=== PATIENT | male | born 1970 | race Caucasian/White ===

== ENCOUNTER 2017-01-25 16:08 | Emergency (ER) | payer OTHER ==
[~2017-01-25] VITALS: Ht 177.8 cm; Wt 83.0 kg
[2017-01-25 16:25] VITALS: BP 122/73
--- NOTE | 2017-01-25 16:47 | PHYS DOC ---
Past Medical History Past Medical History: Arthritis, Other Additional Past Medical Histor: DDD, chronic back problems Past Surgical History: Other Additional Past Surgical Histo: vasectomy and reversal Alcohol Use: Heavy Drug Use: None Adult General Chief Complaint Chief Complaint: ANKLE PROBLEM HPI HPI Patient is a 46 year old male who presents with mild left lateral ankle pain that began today after he rolled his left ankle. Review of Systems Review of Systems Constitutional: Denies fever or chills [] Eyes: Denies change in visual acuity, redness, or eye pain [] Musculoskeletal: mild left lateral ankle pain Integument: Denies rash or skin lesions [] Neurologic: Denies headache, focal weakness or sensory changes [] Endocrine: Denies polyuria or polydipsia [] Allergies Allergies Allergies Coded Allergies Type Severity Reaction Last Updated Verified No Known Drug Allergies 01/25/17 No Physical Exam Physical Exam Constitutional: Well developed, well nourished, no acute distress, non-toxic appearance. [] Skin: Warm, dry, no erythema, no rash. [] Back: No tenderness, no CVA tenderness. [] Extremities: Left ankle with small amount of soft tissue swelling on the lateral aspect. Tenderness on palpation of the left lateral ankle. Full range of motion to the left ankle and toes. +2 left pedal pulse. Cap refill less than 2 seconds the left lower extremity. Sensation intact to the left lower extremity. Neurologic: Alert and oriented X 3, normal motor function, normal sensory function, no focal deficits noted. [] Psychologic: Affect normal, judgement normal, mood normal. [] Current Patient Data Vital Signs Vital Signs Date Time Temp Pulse Resp B/P Pulse Ox O2 Delivery O2 Flow Rate FiO2 01/25/17 16:25 97.3 60 16 96 Room Air 97.3 EKG EKG [] Radiology/Procedures Radiology/Procedures [] Course & Med Decision Making Course & Med Decision Making Pertinent Labs and Imaging studies reviewed. (See chart for details) Patient is in the ED with left ankle pain after rolling his ankle today. Left ankle x-rays interpreted by Dr. Gutiérrez no noted for tibial plateau fracture. Patient will be placed in a stirrup splint applied by technician automatic. F/u with Ortho on Saturday. Dragon Disclaimer Dragon Disclaimer This electronic medical record was generated, in whole or in part, using a voice recognition dictation system. Departure Departure Impression: Primary Impression: Tibial plateau fracture, right Disposition: HOME, SELF-CARE Condition: STABLE Referrals: CHERELLE HARDING NP (PCP) NINO BULLARD MD Follow-up with your own doctor or the provided orthopedic doctor by calling his office on Saturday Patient Instructions: Ankle Fracture Additional Instructions: You have right tibial plateau fracture. Please ice and elevate the extremity. Follow-up with the provided orthopedic doctor by calling the office on Saturday. You can also see your own doctor if you have one Scripts Hydrocodone/Apap 5-325 ([place] 5-325 Tablet)1 Each Tablet1 Tab PO Q4HRS #12 TAB Prov:FRANCISCO MATTHEWS APRN 01/25/17 Problem Qualifiers Primary Impression: Tibial plateau fracture, right Encounter type: initial encounter Fracture type: closed Qualified Code: S82.141A - Displaced bicondylar fracture of right tibia, initial encounter for closed fracture FRANCISCO MATTHEWS APRN Jan 25, 2017 16:47
[2017-01-25] MEDS ORDERED: HYDR-971 PO (17:04)
--- NOTE | 2017-01-26 08:59 | RAD ---
Indication: Left ankle pain and swelling laterally. Fall today. Technique: 3 views of the left ankle are submitted for review. No comparison is available. Findings: Well-corticated fragments are noted near the medial malleolus, may be sequela of remote injury. In addition, there is a more triangular-shaped potential avulsion fracture from the medial malleolus. There is minimal if any soft tissue swelling. Otherwise, no fracture or dislocation is apparent. Impression: Potential medial malleolus avulsion fracture, could be acute. Additional fragments near the medial malleolus or more likely chronic.
== END 2017-01-25 17:29 | disposition home or self-care (01) ==
LOC: ER 16:08
DX: S82.141A Displaced bicondylar fracture of right tibia, initial encounter for closed fracture (principal); M19.90 Unspecified osteoarthritis, unspecified site; F10.10 Alcohol abuse, uncomplicated; Y90.9 Presence of alcohol in blood, level not specified; Z98.52 Vasectomy status; X58.XXXA Exposure to other specified factors, initial encounter; Y93.89 Activity, other specified; Y92.89 Other specified places as the place of occurrence of the external cause; Y99.8 Other external cause status
CPT/HCPCS: 29515; 73610; 99284-25

== ENCOUNTER 2018-01-07 21:20 | Emergency (ER) | payer OTHER ==
[2018-01-07] MEDS: DIPHTH,PERTUSS(ACELL),TET TOX 0.5 ML DISP.SYRIN. VAX IM (22:33)
== END 2018-01-07 22:46 | disposition home or self-care (01) ==
LOC: ER 21:20
DX: S61.213A Laceration without foreign body of left middle finger without damage to nail, initial encounter (principal); M19.90 Unspecified osteoarthritis, unspecified site; Z23 Encounter for immunization; Z98.52 Vasectomy status; W26.0XXA Contact with knife, initial encounter; Y93.89 Activity, other specified; Y92.89 Other specified places as the place of occurrence of the external cause; Y99.8 Other external cause status
CPT/HCPCS: 29130; 73140; 90471; 90715; 99284-25

== ENCOUNTER 2018-12-20 05:15 | Emergency (ER) | payer OTHER ==
[~2018-12-20] VITALS: Ht 177.8 cm; Wt 81.6 kg
[2018-12-20 05:15] VITALS: BP 125/77
[~2018-12-20 05:15] MED LIST: CEPH-264 PO; HYDR-3164 PO
[2018-12-20] MEDS ORDERED: TRAM50TA PO (05:44)
[2018-12-20] MEDS ORDERED: CEPH500T PO (05:44)
--- NOTE | 2018-12-20 05:44 | PHYS DOC ---
Past Medical History Past Medical History: Arthritis, Other Additional Past Medical Histor: DDD, chronic back problems Past Surgical History: Other Additional Past Surgical Histo: vasectomy and reversal Alcohol Use: Heavy Drug Use: None Adult General Chief Complaint Chief Complaint: FINGER INJURY HPI HPI Patient is a 48 year old male who presents with right index finger pain and swelling. Patient was working in his gutters approximately a week ago when he sustained a small laceration at the distal end. Patient denies any purulent drainage, denies any fever. Notes the pain and swelling is been getting worse over time. He is right-hand dominant. No new numbness or tingling. Increased pain with movement. No fever. Patient reports his last tetanus vaccine was approximately a year ago. [] Review of Systems Review of Systems Constitutional: Denies fever or chills [] Eyes: Denies change in visual acuity, redness, or eye pain [] HENT: Denies nasal congestion or sore throat [] Respiratory: Denies cough or shortness of breath [] Cardiovascular: No chest pain or palpitations[] GI: Denies abdominal pain, nausea, vomiting, bloody stools or diarrhea [] : Denies dysuria or hematuria [] Musculoskeletal: See history of present illness[] Integument: Denies rash or skin lesions [] Neurologic: Denies headache, focal weakness or sensory changes [] Endocrine: Denies polyuria or polydipsia [] All other systems were reviewed and found to be within normal limits, except as documented in this note. Allergies Allergies Allergies Coded Allergies Type Severity Reaction Last Updated Verified No Known Drug Allergies 01/25/17 No Physical Exam Physical Exam Constitutional: Well developed, well nourished, no acute distress, non-toxic appearance. [] HENT: Normocephalic, atraumatic, bilateral external ears normal, oropharynx moist, no oral exudates, nose normal. [] Eyes: PERRLA, EOMI, conjunctiva normal, no discharge. [] Neck: Normal range of motion, no tenderness, supple, no stridor. [] Cardiovascular:Heart rate regular rhythm, no murmur [] Lungs & Thorax: Bilateral breath sounds clear to auscultation [] Abdomen: Not evaluated[] Skin: Warm, dry, no erythema, no rash. [] Back: No tenderness, no CVA tenderness. [] Extremities: Right index finger there is edema, no drainage. No fusiform swelling. Patient's finger is not held in flexion. Full active range of motion. FDS, FDP, and extensor mechanisms are intact. Patient is distal neurovascularly intact. Healing wound at the distal end at the edge of the nailbed. [] Neurologic: Alert and oriented X 3, normal motor function, normal sensory function, no focal deficits noted. [] Psychologic: Affect normal, judgement normal, mood normal. [] Current Patient Data Vital Signs Vital Signs Date Time Temp Pulse Resp B/P (MAP) Pulse Ox O2 Delivery O2 Flow Rate FiO2 12/20/18 05:15 97.5 64 14 125/77 (93) 100 Room Air 97.5 EKG EKG [] Radiology/Procedures Radiology/Procedures [] Course & Med Decision Making Course & Med Decision Making Pertinent Labs and Imaging studies reviewed. (See chart for details) Medical decision making: Patient appears to have an infection of his finger, there is no evidence of flexor tenosynovitis at this time. No evidence of a felon. No evidence of a foreign body. Will start with oral outpatient antibiotics as well as improved pain control. Discussed plan and reasons for early return versus follow-up with his primary care physician with the patient. He voiced understanding. All questions were answered.[] Dragon Disclaimer Dragon Disclaimer This electronic medical record was generated, in whole or in part, using a voice recognition dictation system. Departure Departure Impression: Primary Impression: Finger infection Disposition: HOME, SELF-CARE Condition: IMPROVED Referrals: TOPHER LUQUE DO (PCP) Follow-up in 2 days Patient Instructions: Fingertip Infections Additional Instructions: Follow-up with your regular doctor in 2 days. Return to the ER if worsening pain , fever of more than 101�, or any other concerns. Scripts Tramadol Hcl (TRAMADOL HCL) 50 Mg Tablet 50 MG PO Q6HRS PRN for PAIN, #20 TAB Prov: NISA VEGA DO 12/20/18 Cephalexin (CEPHALEXIN) 500 Mg Tablet 1 TAB PO QID, #40 TAB Prov: NISA VEGA DO 12/20/18 NISA VEGA DO Dec 20, 2018 05:44
== END 2018-12-20 05:47 | disposition home or self-care (01) ==
LOC: ER 05:15
DX: L08.89 Other specified local infections of the skin and subcutaneous tissue (principal); M79.644 Pain in right finger(s); R22.31 Localized swelling, mass and lump, right upper limb; M19.90 Unspecified osteoarthritis, unspecified site; F10.20 Alcohol dependence, uncomplicated; Y90.9 Presence of alcohol in blood, level not specified
CPT/HCPCS: 99283